=== PATIENT | female | born 1995 | race Caucasian/White ===

== ENCOUNTER 2019-11-01 14:16 | Observation (INO) | payer MEDICAID, SELFPAY ==
[~2019-11-01] VITALS: Ht 162.6 cm; Wt 108.9 kg
[2019-11-01 15:00] VITALS: BP 108/58
== END 2019-11-01 16:20 | disposition home or self-care (01) ==
LOC: MLD 14:16
PROVIDERS: ADMIT Obstetrics & Gynecology; ATTEND Obstetrics & Gynecology
DX: O36.8130 Decreased fetal movements, third trimester, not applicable or unspecified (principal); Z20.828 Contact with and (suspected) exposure to other viral communicable diseases; O24.419 Gestational diabetes mellitus in pregnancy, unspecified control; Z3A.37 37 weeks gestation of pregnancy
CPT/HCPCS: 59025; 81000; 82948; 87426; G0378; 99283

== ENCOUNTER 2022-12-19 14:02 | Emergency (ER) | payer MEDICAID ==
[~2022-12-19] VITALS: Ht 162.6 cm; Wt 111.6 kg
[~2022-12-19 14:02] MED LIST: PNV91TAB8 PO
[2022-12-19 14:20] VITALS: BP 103/67; PULSE 65; RESP 18; TEMP 98.6; O2SAT 99
[2022-12-19] MEDS ORDERED: CYCLOBENZAPRINE 10 MG TAB PO ONE (14:55)
[2022-12-19] MEDS ORDERED: KETOROLAC 30 MG/ML VIAL IM ONE (14:55)
[2022-12-19] MEDS ORDERED: LID5T TP (15:35)
[2022-12-19] MEDS ORDERED: CYCL-711 PO (15:35)
[2022-12-19] MEDS ORDERED: IBUP-2213 PO (15:35)
[2022-12-19 16:24] VITALS: BP 112/67; PULSE 66; RESP 18; TEMP 98.6; O2SAT 100
== END 2022-12-19 16:24 | disposition home or self-care (01) ==
LOC: MED 14:02
DX: S13.4XXA Sprain of ligaments of cervical spine, initial encounter (principal); M62.830 Muscle spasm of back; M54.16 Radiculopathy, lumbar region; M54.6 Pain in thoracic spine; Z79.899 Other long term (current) drug therapy; Z79.1 Long term (current) use of non-steroidal anti-inflammatories (NSAID); V89.2XXA Person injured in unspecified motor-vehicle accident, traffic, initial encounter; Y93.89 Activity, other specified; Y92.410 Unspecified street and highway as the place of occurrence of the external cause; Y99.8 Other external cause status
CPT/HCPCS: 72050; 72110; 81025; 96372; 99284; J1885